=== PATIENT | female | born 1940 | race Caucasian/White ===

== ENCOUNTER → 2019-09-21 13:17 | Outpatient (CLI) | payer MEDICARE, OTHER, SELFPAY ==
--- NOTE | 2019-09-21 | DI.MRI.S_ITS ---
PROCEDURE: MR LUMBAR SPINE WO CON INDICATIONS: LUMBAGO WITH SCIATICA TECHNIQUE: Noncontrast sagittal T1 spin echo and T2 fast echo, sagittal STIR, axial T1 and T2 fast spin echo through the lumbar spine. In cases with scoliosis, additional coronal T2 fast spin echo may be performed. COMPARISON: [facility], CR, XR LUMBAR SPINE 2 OR 3 VIEWS, 09/08/2019, 13:16. FINDINGS: Image quality: Partially degraded by motion artifact. Alignment and Curvature: 5 lumbar type vertebral bodies are present by plain film. It there is loss of normal lumbar lordosis. There is mild grade 1 retrolisthesis of L3 on L4. Mild grade 1 anterolisthesis of L4 on L5. Bone Marrow: Marrow is of normal overall signal. No acute vertebral body compression fractures. There is left-sided fusion of L4-L5 with transpedicular pedicle screws and a posterior padilla. There is moderate reactive signal within the endplates adjacent to the L2-L3, L3-L4, and L5-S1 intervertebral discs. Mild reactive signal within the endplates adjacent to the L1-L2 and L4-L5 intervertebral discs. Spinal Cord: Conus medullaris terminates at the upper L2 level. Visualized cord demonstrates normal signal and size. Paraspinous Soft Tissues: No paravertebral masses. L1-L2: Mild disc height loss and desiccation. Mild diffuse disc bulge. Mild facet and ligamentum flavum hypertrophy. Mild epidural lipomatosis. Mild canal stenosis. Mild bilateral foraminal stenosis. L2-L3: Severe disc height loss and desiccation. Mild diffuse disc bulge. Mild facet and ligamentum flavum hypertrophy. Mild epidural lipomatosis. Mild canal stenosis. Moderate right and mild left foraminal stenosis. L3-L4: Moderate disc height loss and desiccation. Moderate diffuse disc bulge/osteophyte. Mild facet and ligament flavum hypertrophy. Mild epidural lipomatosis. Mild canal stenosis. Moderate right and mild left foraminal stenosis. L4-L5: Moderate disc height loss and desiccation. Mild diffuse disc bulge. Mild facet and ligament flavum hypertrophy. Mild canal stenosis. Mild bilateral foraminal stenosis. L5-S1: Moderate disc height loss and desiccation. Mild diffuse disc bulge with superimposed left paracentral disc extrusion. There is an adjacent 10 mm low T2 intensity sequestered fragment within the left lateral recess at the upper S1 level.. Moderate facet hypertrophy bilaterally. Mild ligamentum flavum hypertrophy bilaterally. Moderate canal stenosis. Moderate subarticular foraminal stenosis bilaterally. There is compression and posterior deviation of the left S1 nerve root at the upper S1 level within the lateral recess. IMPRESSION: 1. Multilevel degenerative disc and facet disease, as well as ligamentum flavum hypertrophy and epidural lipomatosis. 2. Multilevel canal stenoses, worst at L5-S1 where there is moderate canal stenosis. 3. Multilevel foraminal stenoses, worst at L2-L3, L3-L4, and L5-S1, where there are moderate foraminal stenoses as described above. 4. Disc extrusion and adjacent sequestered disc fragment at L5-S1, causing left S1 nerve root compression and deviation. Recommend correlation with clinical symptoms to ascertain relevance of this finding. Dictated by: Princess Mata M.D. on 09/21/2019 at 15:39 Transcribed by: FLORINA on 09/21/2019 at 15:43 Approved by: Princess Mata M.D. on 09/21/2019 at 16:10
== END ==
PROVIDERS: PCP Physician Assistant Medical; Referring Provider Orthopaedic Surgery; Visit Provider Orthopaedic Surgery
DX: M51.16 Intervertebral disc disorders with radiculopathy, lumbar region (principal); M51.17 Intervertebral disc disorders with radiculopathy, lumbosacral region; M48.061 Spinal stenosis, lumbar region without neurogenic claudication; M48.07 Spinal stenosis, lumbosacral region; M47.26 Other spondylosis with radiculopathy, lumbar region; M47.27 Other spondylosis with radiculopathy, lumbosacral region
CPT/HCPCS: 72148

== ENCOUNTER → 2019-11-10 09:55 | Outpatient (CLI) | payer MEDICARE, OTHER, SELFPAY | PROVIDERS: PCP Physician Assistant Medical; Referring Provider Orthopaedic Surgery; Visit Provider Orthopaedic Surgery | DX: Z01.818 Encounter for other preprocedural examination (principal) | CPT/HCPCS: 93005 ==

== ENCOUNTER → 2019-11-20 09:32 | Outpatient (CLI) | payer MEDICARE, OTHER, SELFPAY ==
[2019-11-21 20:00] LABS: COVID19 Sendout Not Detected (Not Detect)
== END ==
PROVIDERS: PCP Physician Assistant Medical; Visit Provider Physician Assistant
DX: Z11.59 Encounter for screening for other viral diseases (principal)
CPT/HCPCS: 87635

== ENCOUNTER 2019-11-23 09:48 | Day surgery (SDC) | payer MEDICARE, OTHER, SELFPAY ==
[2019-11-17 14:14] VITALS: BMI 24.7
[2019-11-23] VITALS (11 sets, daily range): BP systolic 111–158; BP diastolic 58–84; PULSE 59–82; RESP 7–17; TEMP 35.6–36.4; O2SAT 95–100; BMI 23.0
--- NOTE | 2019-11-23 | DI.RAD.S_ITS ---
PROCEDURE: XR LUMBAR SPINE 2-3V INDICATIONS: L45 SCREW REMOVAL, L5S1 DISCECTOMY TECHNIQUE: 2 views of the lumbar spine were acquired. COMPARISON: [facility], RF, LUMBAR TRANSFORAMINAL MARKEL, 10/10/2019, 8:01. [facility], CR, L-SPINE 2-3 VIEWS, 01/20/2011, 12:56. FINDINGS: Bones: Intraoperative targeted evaluation centered on L5-S1 to the left of midline area with metallic probe overlying the posterior elements from left-sided approach. L4-L5 posterior fusion procedure has been previously performed. Soft tissues: Overlying bowel gas pattern is normal. No suspicious soft tissue calcifications. IMPRESSION: Intraoperative evaluation with localization of the left posterolateral elements of the L5-S1 level. Prior L4-L5 fusion procedure with interbody disc prosthesis has been previously performed on the left. Dictated by: Matthew Carrasco M.D. on 11/23/2019 at 12:15 Approved by: Matthew Carrasco M.D. on 11/23/2019 at 12:18
[2019-11-23] MEDS: LACTATED RINGERS 1,000 ML 42 ML IV ×2 (09:58→11:59)
--- NOTE | 2019-11-23 10:21 | PM.PREOP ---
Pre-operative Note COVID-19 COVID-19 status: Negative Result date/Date tested (Pos, Neg/Pending): 11/20/19 Interval Note History & Physical reviewed/Exam performed by Physician: Yes Changes to H&P: No
--- NOTE | 2019-11-23 10:23 | P.OP_ITS ---
Operative Date/Time/Diagnoses Date of procedure: 11/23/19 Time of procedure: 12:20 Pre-op diagnosis: History of lumbar fusion Lumbar disc herniation with radiculopathy Post-op diagnosis: same Procedure & Clinicians Procedure: L5-S1 left diskectomy Use of microscope Same procedure as scheduled: Yes Indications: [age] year old female with intractable pain from lumbar disc herniation. They had failed conservative management and requested operative intervention. Risks and benefits of surgery were discussed and appropriate consents were obtained. Surgeon: Joe Zhong Software Test Automation Engineer: Janet Lara Anesthesia Type: General Operative Notes Findings: None Closure Type: primary Specimen(s): none sent Estimated Blood Loss (mL): 20 Procedure in detail: Patient was brought to the operating room and intubated on the table. A time-out was performed. There were rolled over the well-padded prone position on the Sheldon table. The back was prepped and draped in standard sterile fashion. Preoperative antibiotics were given. Using fluoroscopy, a 3 cm incision was made to the well-marked left of the midline at the L4-5 level. We used Bovie to come down to and split the fascia. We then used the [employer] MaXcess dilators with fluoroscopy to dilate a muscle- splitting approach to the L5-S1 level and then opened our retractors. We were actually able to do this and get around the screws and did not need to remove the old screws. The soft tissue was cleared off with Bovie, a marker was placed, an x-ray was taken to confirm positioning. We then brought in the microscope. A combination of high-speed bur and Kerrison were used to perform a left-sided hemilaminotomy and hemifacetectomy. We carefully retracted the dura and expose the large extruded disc herniation. This was cleared with bipolar. A scalpel used to perform an annulotomy and a pituitary was used to perform the diskectomy. The ball probe was swept underneath the dura along the disc to make sure there were no further loose fragments. This was also placed into the disc and moved around to make sure there were no further loose fragments. Once everything was adequately decompressed, the wound was copiously irrigated. The retractor was removed and the fascia was closed. Vancomycin powder was placed in the wound. Superficial and skin were closed. Sterile dressing was placed. The patient was then rolled over, transferred to the stretcher, and brought to recovery room without complications. Complications: none Post-operative Condition: stable Disposition: PACU Plan for aftercare: Outpatient. Limited bending, twisting, lifting. Follow up in 2 weeks and begin activity as tolerated at that point.
[2019-11-23] MEDS: CEFAZOLIN 2 GM/100 ML FROZ.PIGGY IV (11:02)
--- NOTE | 2019-11-23 11:26 | SUR.OPER ---
Prone on spine table, head in foam head support, padded chest and pelvic supports, gel pad at knees, lower legs supported by pillows; nipples, genitalia and toes free of pressure, arms secured on foam padded arm boards at <90 degrees abduction. Tape over blanket at thigh secured to table.
[2019-11-23] MEDS: THROMBIN (RECOMBINANT) 5,000 UNIT VIAL 5000 UNIT TOP (11:30)
[2019-11-23] MEDS: VANCOMYCIN 1,000 MG VIAL 1000 MG TOP (11:30)
[2019-11-23] MEDS: BUPIVACAINE LIPOSOME 266 MG/20 ML VIAL INJ (11:30)
[2019-11-23] MEDS: BUPIVACAINE 0.25% W/ EPI 30 ML VIAL 60 ML INJ (11:30)
[2019-11-23] MEDS: SODIUM CHLORIDE 0.9% 1,000 ML, GENTAMICIN 80 MG IRR (11:33)
[2019-11-23] MEDS: fentaNYL 100 MCG/2 ML INJ IV ×2 (12:41→12:49)
[2019-11-23] MEDS: OXYCODONE/ACETAMINOPHEN 5/325 TABLET 1 TAB PO ×2 (12:59→13:24)
[2019-11-23] MEDS: HYDROMORPHONE 2 MG INJ IV ×4 (13:00→13:26)
--- NOTE | 2019-11-23 14:09 | SUR.PHASEI ---
Patient noted to have a 10 beat run of v-tach on monitor. Remained asymptomatic throughout and was self limiting. Dr. Hernandes made aware of episode and printed out telemetry reading. Stated he would like to see patient before she discharges. Patient resting peacefully in phase 2. Remains asymptomatic.
--- NOTE | 2019-11-23 16:13 | SUR.PHASEII ---
1515 late entry: discharged patient home in stable condition with . Dressing CDI. Patient has experienced no ectopy on the court monitor since being seen in Phase 2 recovery. Home with in stable condition.
== END 2019-11-23 15:15 | disposition home or self-care (01) | DRG 520 ==
LOC: AC 13:01 → OR 11-30 08:31
PROVIDERS: PCP Physician Assistant Medical; Referring Provider Physician Assistant Medical; Visit Provider Orthopaedic Surgery
PROC: (CPT 63030; principal; 2019-11-23 11:15)
DX: M51.16 Intervertebral disc disorders with radiculopathy, lumbar region (principal); Z98.1 Arthrodesis status; M06.9 Rheumatoid arthritis, unspecified; E03.9 Hypothyroidism, unspecified; I10 Essential (primary) hypertension; E78.5 Hyperlipidemia, unspecified; K21.9 Gastro-esophageal reflux disease without esophagitis; Z87.891 Personal history of nicotine dependence
CPT/HCPCS: 63030; 72100; 76000; 87635; C9290; J0330; J0690; J1100; J1170; J2405; J2704; J3010

== ENCOUNTER → 2021-10-08 11:42 | Outpatient (CLI) | payer MEDICARE, OTHER, SELFPAY ==
--- NOTE | 2021-10-08 11:44 | DI.MRI.S_ITS ---
PROCEDURE: MR LUMBAR SPINE WO CON INDICATIONS: Lumbar disc herniation with radiculopathy TECHNIQUE: Noncontrast sagittal T1 spin echo and T2 fast echo, sagittal STIR, and T2 fast spin echo through the lumbar spine. In cases with scoliosis, additional coronal T2 fast spin echo may be performed. COMPARISON: [facility] [place], CR, XR LUMBAR SPINE 2 OR 3 VIEWS, 09/24/2021, 9:52. [facility], , MR LUMBAR SPINE WO CON, 09/21/2019, 13:38. FINDINGS: Image quality: Excellent. Alignment and Curvature: There is normal bony alignment. Bone Marrow: Multilevel degenerative chronic endplate changes noted, similar prior exam. There is L4-5 discectomy and fusion associated with unilateral left posterior padilla and screw instrumentation. There is been a left hemilaminectomy at L5-S1 associated with increased degenerative endplate changes. Spinal Cord: Conus medullaris terminates at the L1 level. Visualized cord demonstrates normal signal and size. Paraspinous Soft Tissues: No paravertebral masses. T12-L1: Normal appearance. L1-L2: Disc height is maintained. Posterior disc bulge, hypertrophic facet joints and ligamentum flavum laxity results in osuz-td-eecdeaky central stenosis. No foraminal stenosis L2-L3: Disc space narrowing with posterior disc osteophyte and hypertrophic facet joints results in mild central stenosis. Moderate bilateral foraminal stenosis L3-L4: Disc space narrowing and posterior disc bulge associated with mild central stenosis. Hypertrophic facet joints contribute to moderate to severe bilateral foraminal stenosis L4-L5: Discectomy and fusion with unilateral left instrumentation. No central stenosis. Hypertrophic facet joints present without foraminal stenosis. L5-S1: Degenerative endplate changes with erosions as increased compared to the prior exam. There has been a left hemilaminectomy. No central stenosis. Left sided disc fragment has resolved. Moderate left and mild right foraminal stenosis. IMPRESSION: 1. Multilevel degenerative disc disease and arthropathy results in varying degrees of central and foraminal stenosis including or bntz-fa-drvnfzgy central stenosis at L1-2 and moderate to severe bilateral foraminal stenosis at L3-4 2. Stable L5-S1 discectomy and fusion with unilateral left instrumentation. 3. Increased degenerative endplate changes at L5-S1 Approved by: Milton Baez M.D. on 10/08/2021 at 12:07
== END ==
PROVIDERS: PCP Physician Assistant Medical; Referring Provider Orthopaedic Surgery; Visit Provider Orthopaedic Surgery
DX: M51.16 Intervertebral disc disorders with radiculopathy, lumbar region (principal); M51.36 Other intervertebral disc degeneration, lumbar region; M48.061 Spinal stenosis, lumbar region without neurogenic claudication; Z98.1 Arthrodesis status
CPT/HCPCS: 72148

== ENCOUNTER → 2024-12-11 09:15 | Outpatient (CLI) | payer MEDICARE, OTHER, SELFPAY ==
--- NOTE | 2024-12-11 09:19 | DI.ECHO.S_ITS ---
[facility] : : [address] : : [place] : : [id number] : : Phone: [phone] Echocardiogram Report + + :Name: LOC PICHARDO Study Date: 12/11/2024 Height: 60 in : :[facility] ReadingLocation: Weight: 136 lb : : Gender: Female BSA: 1.6 m2 : :: 1940 Age: 84 yrs BP: 151/107 mmHg: :Reason For Study: CARDIOMYOPATHY : :Ordering Physician: GAYATHRI, : :ASHLEY Performed By: John Robles : :Referring: ASHLEY CANAELS : + + Interpretation Summary 1) Normal left ventriculra size with mildly to moderately reduced systolic function (EF 40-45%). 2) Normal right ventricular size with mildly reduced function. 3) There is mild mitral regurgitation. 4) Compared to the Echo done 08/14/2024, no significant change. Procedure: A two-dimensional transthoracic echocardiogram with color flow and Doppler was performed. The study quality was technically adequate. A contrast injection of Definity was performed to improve assessment of LV function. Comparison is made with the echocardiogram of 08/14/2024. The patient was in atrial fibrillation with heart rates between 61-86 bpm during the exam. Left Ventricle: The left ventricle is normal in size. There is normal left ventricular wall thickness. There is no ventricular septal defect visualized. The ejection fraction is estimated to be 40-45%. There is mild to moderate global hypokinesis of the left ventricle. Diastolic function could not be accurately assessed due to atrial fibrillation. Right Ventricle: The right ventricle is normal size. Right ventricular systolic function is mildly reduced. Atria: The left atrial size is normal. Right atrial size is normal. There is no Doppler evidence for an interatrial shunt. Mitral Valve: There is mild mitral annular calcification. The mitral valve leaflets appear mildly thickened. There is mild mitral regurgitation. Aortic Valve: The aortic valve is trileaflet. The aortic valve opens well. No aortic regurgitation is present. Tricuspid Valve: The tricuspid valve is not well visualized, but is grossly normal. There is mild tricuspid regurgitation. The right ventricular systolic pressure is estimated to be at least 27 mmHg based on an estimated right atrial pressure of 3 mm Hg. Pulmonic Valve: The pulmonic valve is not well visualized. There is no pulmonic valvular regurgitation. Great Vessels: The aortic root is normal size. The dimensions of the ascending aorta are normal. The pulmonary artery is not well visualized, but is probably normal size. The IVC is of normal diameter and collapses greater than 50% with a sniff. This suggests a low right atrial pressure of 3 mm Hg. Pericardium/ Pleura There is no pericardial effusion. There is no pleural effusion. MMode/2D Measurements & Calculations LVIDd: 3.5 cm LVOT diam: 1.8 cm LVIDs: 3.0 cm Ao root diam: 3.3 cm FS: 15.0 % asc Aorta Diam: 3.1 cm EPSS: 1.4 cm IVSd: 1.0 cm LVPWd: 1.1 cm LV hansen. diameter/BSA (cm/m^2): 2.2 LV sys. diameter/BSA (cm/m^2): 1.9 LA A2 area: 17.7 cm2 RA long axis: 5.1 cm LA A4 area: 13.8 cm2 RA area: 15.9 cm2 LA length (vol): 4.6 cm RA vol: 42.0 ml LA vol: 45.2 ml RA : 26.5 ml/m2 LA vol index: 28.5 ml/m2 IVC diam: 1.4 cm RVD1 (basal): 3.3 cm RVD2 (mid): 2.8 cm TAPSE: 1.5 cm Doppler Measurements & Calculations Ao V2 max: 104.1 cm/sec LVOT Max Loki: 68.2 cm/sec Ao V2 mean: 76.2 cm/sec LV V1 max P.9 mmHg Ao max P.3 mmHg LV V1 VTI: 13.6 cm Ao mean P.5 mmHg TRISH(I,D): 1.8 cm2 Ao V2 VTI: 20.0 cm TRISH(V,D): 1.8 cm2 sev ratio: 0.68 TRISH indexed to BSA (cm^2/m^2): 1.2 MV E max loki: 81.4 cm/sec TR max loki: 247.0 cm/sec MV A max loki: 27.0 cm/sec TR max P.4 mmHg MV E/A: 3.0 PA V2 max: 63.1 cm/sec Med Peak E' Loki: 9.4 cm/sec PA V2 mean: 45.3 cm/sec E/E' med: 8.7 PA mean P.87 mmHg MV dec time: 0.19 sec PA pr(Accel): 77.3 mmHg SV(LVOT): 36.5 ml Reading Physician:05:[id number] PM
== END ==
PROVIDERS: Referring Provider Internal Medicine Cardiovascular Disease; Visit Provider Internal Medicine Cardiovascular Disease
DX: I08.1 Rheumatic disorders of both mitral and tricuspid valves (principal); I50.20 Unspecified systolic (congestive) heart failure; I42.9 Cardiomyopathy, unspecified
CPT/HCPCS: C8929; Q9957

== ENCOUNTER → 2025-01-04 07:52 | Outpatient (CLI) | payer MEDICARE, OTHER, SELFPAY ==
--- NOTE | 2025-01-04 07:53 | DI.NM.S_ITS ---
PROCEDURE: NM JOYCE PERF SPECT R&S PHARM Rest and pharmacological stress myocardial perfusion SPECT with gated imaging and ejection fraction RADIOPHARMACEUTICAL: 12.2 mCi Tc-99m tetrafosmin IV at rest and 26.1 mCi Tc-99m tetrafosmin IV at peak effect of pharmacological stress. A [id number] was performed. INDICATIONS: CARDIOMYOPATHY, UNSPECIFIED TECHNIQUE: Radiopharmaceutical was injected at peak stress test, and also at rest. SPECT images were obtained. SPECT myocardial perfusion images were displayed in short axis, horizontal long axis, and vertical long axis views. Gated images were reviewed using [employer] software. COMPARISON: None. CARDIAC STRESS: A pharmacologic stress test was performed under the supervision of an attending staff, using an infusion of regadenoson 0.4 mg IV. Hemodynamic data: There is normal blood pressure and heart rate response to pharmacologic stress. Symptoms: The patient denied anginal chest pain. EKG: No diagnostic changes of ischemia; no ectopy. FINDINGS: Raw data: There is good myocardial uptake of radiotracer. No significant motion artifacts. Tscv-vq-swbim ratio is 0.25 (normal is less than 0.38 for tetrafosmin tracer). Left ventricle function: Gated images demonstrate normal left ventricular wall thickening. No segmental wall motion abnormalities. No transient ischemic dilation; TID is 0.77 (normal less than 1.3). Left ventricle resting end diastolic volume is 76 mL. Left ventricle stress ejection fraction is 65%; normal range is above 45%. Myocardial perfusion: There is normal distribution of activity in the right and left ventricular myocardium. No fixed or reversible perfusion defects. IMPRESSION: Low risk study. No evidence of pharmacologic induced ischemia or scar. Normal LV size and function. Dictated by: Vida Steel D.O. on 01/04/2025 at 16:04 Approved by: Vida Steel D.O. on 01/04/2025 at 16:08
== END ==
LOC: NUCM 07:52
PROVIDERS: Visit Provider Internal Medicine Cardiovascular Disease
DX: I42.9 Cardiomyopathy, unspecified (principal); R06.09 Other forms of dyspnea
CPT/HCPCS: 78452; 93017; A9502; J2785